=== PATIENT | female | born 1970 | race African-American/Black ===

== ENCOUNTER 2021-06-12 06:24 | Day surgery (SDC) | payer OTHER ==
[2021-06-09 15:50] VITALS: BMI 29.2
[2021-06-12] MEDS ORDERED: BUPIVACAINE HCL/PF 0.25% (2.5MG/ML) 10 ML VIAL ONE (09:18)
[2021-06-12] MEDS ORDERED: EPINEPHrine 1:1,000 1,000 MCG/ML ML ONE (09:18)
[2021-06-12] MEDS ORDERED: MIDAZOLAM HCL 2 MG/2 ML SINGLE DOSE VIAL ONE (09:20)
[2021-06-12] MEDS ORDERED: DEXAMETHASONE SOD PHOSPHATE 10 MG/1 ML VIAL ONE (09:21)
[2021-06-12] MEDS ORDERED: ROPIVACAINE HCL/PF 100 MG/20 ML VIAL ONE (09:21)
[2021-06-12] MEDS ORDERED: oxyCODONE HCL 5 MG TABLET PO PRN (09:38)
[2021-06-12] MEDS ORDERED: ONDANSETRON 4 MG/2 ML VIAL IVPUSH PRN (09:38)
[2021-06-12] MEDS ORDERED: LACTATED RINGERS SOLUTION 1,000 ML IV SCH (09:45)
[2021-06-12] MEDS ORDERED: PROPOFOL 20 ML ONE ×2 (10:07)
[2021-06-12] MEDS ORDERED: ceFAZolin SODIUM 1 GM VIAL ONE (10:10)
[2021-06-12] MEDS ORDERED: DEXAMETHASONE SOD PHOSPHATE 4 MG/1 ML VIAL ONE (10:12)
[2021-06-12] MEDS ORDERED: ONDANSETRON 4 MG/2 ML VIAL ONE (10:12)
[2021-06-12] MEDS ORDERED: KETOROLAC TROMETHAMINE 30 MG/1 ML VIAL ONE (10:12)
[2021-06-12] MEDS ORDERED: BUPIVACAINE HCL/PF 0.25% (2.5MG/ML) 10 ML VIAL IJ ONE (11:10)
[2021-06-12 13:17] VITALS: TEMP 98
[2021-06-12 13:53] VITALS: BP 123/78; PULSE 60
== END 2021-06-12 13:50 | disposition home or self-care (01) ==
LOC: FASU 06:24
PROVIDERS: ATTEND Orthopaedic Surgery
PROC: 0LS30ZZ Reposition Right Upper Arm Tendon, Open Approach (ICD-10-PCS; 2021-06-12)
PROC: 0PB94ZZ Excision of Right Clavicle, Percutaneous Endoscopic Approach (ICD-10-PCS; principal; 2021-06-12 10:28)
PROC: 0RBJ4ZZ Excision of Right Shoulder Joint, Percutaneous Endoscopic Approach (ICD-10-PCS; 2021-06-12 10:28)
PROC: 0RNJ4ZZ Release Right Shoulder Joint, Percutaneous Endoscopic Approach (ICD-10-PCS; 2021-06-12 10:28)
DX: M67.813 Other specified disorders of tendon, right shoulder (principal); M75.111 Incomplete rotator cuff tear or rupture of right shoulder, not specified as traumatic; S43.431A Superior glenoid labrum lesion of right shoulder, initial encounter; X58.XXXA Exposure to other specified factors, initial encounter; Y93.9 Activity, unspecified; Y92.9 Unspecified place or not applicable; M65.811 Other synovitis and tenosynovitis, right shoulder; M94.211 Chondromalacia, right shoulder; M75.01 Adhesive capsulitis of right shoulder
CPT/HCPCS: 88304-TC; 94760; J1100

== ENCOUNTER 2021-06-20 21:08 | Emergency (ER) | payer OTHER ==
[2021-06-20 21:15] VITALS: BMI 28.7
[2021-06-20] MEDS ORDERED: CEFAZOLIN 2 GM in DEXTROSE 5%-WATER - 50 ML IVPB ONE (22:07)
[2021-06-20] MEDS ORDERED: ceFAZolin SODIUM 1 GM VIAL ONE (22:52)
[2021-06-20 23:30] LABS: HEMOGLOBIN 12.8 GM/dL (10.7-15.3); MONO % 13.2 % (3.8-10.2)
[2021-06-20 23:32] LABS: BASO % 0.8 % (0-2.0); EOS % 4.6 % (0-4.5); LYMPH % 30.3 % (8-40); MCH 30.7 pg (25.7-33.7); MCHC 34.7 g/dl (32.0-36.0); MEAN CELL VOLUME 88.5 fl (80-96); NEUT % 51.1 % (42.8-82.8); PLATELET COUNT 201 10^3/uL (134-434); RBC 4.18 M/mm3 (3.60-5.2); RDW 13.3 % (11.6-15.6)
[2021-06-20 23:55] VITALS: BP 136/78; PULSE 86; TEMP 98.6
== END 2021-06-20 23:57 | disposition home or self-care (01) ==
LOC: FER 21:08
PROC: 3E03329 Introduction of Other Anti-infective into Peripheral Vein, Percutaneous Approach (ICD-10-PCS; principal; 2021-06-20)
PROC: 0H9DXZZ Drainage of Right Lower Arm Skin, External Approach (ICD-10-PCS; 2021-06-20)
DX: S40.821A Blister (nonthermal) of right upper arm, initial encounter (principal); Y99.9 Unspecified external cause status
CPT/HCPCS: 36415; 85025; 85651; 86140; 99284-25

== ENCOUNTER 2022-10-08 05:07 | Day surgery (SDC) | payer OTHER ==
[2022-10-04 14:30] VITALS: BMI 28.3
[~2022-10-08 05:07] MED LIST: ACETAMINOPHEN 500 MG TABLET (FP) PO PRN
[2022-10-08] MEDS ORDERED: DEXAMETHASONE SOD PHOSPHATE 10 MG/1 ML VIAL ONE (07:10)
[2022-10-08] MEDS ORDERED: LIDOCAINE HCL/PF 1% SDV 5ML VIAL ONE (07:10)
[2022-10-08 11:18] VITALS: RESP 18
[2022-10-08] MEDS ORDERED: BUPIVACAINE HCL/PF 0.5% (5 MG/ML) 30 ML VIAL IJ ONE (11:38)
[2022-10-08] MEDS ORDERED: DEXAMETHASONE SOD PHOSPHATE 10 MG/1 ML VIAL IM ONE (11:39)
[2022-10-08] MEDS ORDERED: IOHEXOL 180 MG/1 ML ML IJ ONE (11:39)
[2022-10-08] MEDS ORDERED: LIDOCAINE HCL 1% PRESERVATIVE FREE - 30ML VIAL IJ ONE ×2 (11:39)
[2022-10-08] MEDS ORDERED: ACETAMINOPHEN 500 MG TABLET (FP) ONE (11:56)
[2022-10-08] MEDS ORDERED: ACETAMINOPHEN 500 MG TABLET (FP) PO PRN (12:55)
[2022-10-08 15:02] VITALS: BP 124/72; PULSE 62; TEMP 98.2
== END 2022-10-08 13:20 | disposition home or self-care (01) ==
LOC: JASU-SURG 05:07
PROVIDERS: ATTEND Pain Medicine Pain Medicine
PROC: 3E0R3BZ Introduction of Anesthetic Agent into Spinal Canal, Percutaneous Approach (ICD-10-PCS; 2022-10-08)
PROC: 3E0R33Z Introduction of Anti-inflammatory into Spinal Canal, Percutaneous Approach (ICD-10-PCS; principal; 2022-10-08 12:30)
DX: M47.812 Spondylosis without myelopathy or radiculopathy, cervical region (principal)
CPT/HCPCS: 76000-TC-FY; J1100

== ENCOUNTER 2022-11-09 04:25 | Day surgery (SDC) | payer OTHER ==
[2022-11-08 10:55] VITALS: BMI 30.9
[2022-11-09] MEDS ORDERED: ACETAMINOPHEN 500 MG TABLET (FP) PO PRN (14:49)
[2022-11-09] MEDS ORDERED: LIDOCAINE HCL 1% PRESERVATIVE FREE - 30ML VIAL IJ ONE (15:17)
[2022-11-09] MEDS ORDERED: IOHEXOL 180 MG/1 ML ML IJ ONE (15:24)
[2022-11-09] MEDS ORDERED: DEXAMETHASONE SOD PHOSPHATE 10 MG/1 ML VIAL IM ONE (15:25)
[2022-11-09 16:02] VITALS: RESP 18
[2022-11-09 17:05] VITALS: BP 110/60; PULSE 70; TEMP 97.8
== END 2022-11-09 16:45 | disposition home or self-care (01) ==
LOC: JASU-SURG 04:25
PROVIDERS: ATTEND Pain Medicine Pain Medicine
PROC: 3E0R3BZ Introduction of Anesthetic Agent into Spinal Canal, Percutaneous Approach (ICD-10-PCS; 2022-11-09)
PROC: 3E0R33Z Introduction of Anti-inflammatory into Spinal Canal, Percutaneous Approach (ICD-10-PCS; principal; 2022-11-09 16:00)
DX: M54.12 Radiculopathy, cervical region (principal)
CPT/HCPCS: 76000-TC-FY; J1100